=== PATIENT | male | born 1980 | race African-American/Black ===

== ENCOUNTER 2016-12-13 09:06 | Inpatient (IN) | payer OTHER, MEDICARE ==
[~2016-12-13] VITALS: Ht 208.3 cm; Wt 256.0 kg
[2016-12-13] VITALS (9 sets, daily range): BP systolic 134–182; BP diastolic 71–105; PULSE 78–101; RESP 19–22; TEMP 98–98.5; O2SAT 94–99
[~2016-12-13 09:06] MED LIST: AMLO5TAB22 PO; BACI500O9 TOP; CLEO300C2 PO; GABA600T PO; LANTINJ SC; LISI-366 PO; LORTA5 PO; METO25 PO; NOVOLOGP2 SQ; PRAV40TA2 PO; SAXA5TAB2 PO; TRAD5TAB PO
[2016-12-13] MEDS ORDERED: ASPIRIN 325 MG TAB PO ONE (09:45)
[2016-12-13] MEDS ORDERED: SODIUM CHLORIDE 0.9% FLUSH 10 ML FLUSH IVF PRN (09:45)
--- NOTE | 2016-12-13 09:45 | PD ---
HPI Chief Complaint: Cardiac Complaint Time Seen by Provider: 09:27 Travel History International Travel<30 days: No Contact w/Intl Traveler<30days: No Traveled to known affect area: No History of Present Illness HPI This patient complains of chest pain. Location is center sternum. Feels like a tightness and heaviness. It's been intermittent since yesterday. Duration one day. Severity is moderate. No alleviating factors. Not exacerbated by movement or activity. He has no history of cardiac disease. However he is a morbidly obese hypertensive diabetic. Denies ever having stress testing. PFSH Past Medical History Asthma: Yes Cancer: No Cardiovascular Problems: No Diabetes: Yes Patient Takes Glucophage: Yes (12-12-2016 PM) Endocrine: Yes Genitourinary: No Hepatitis: No Hiatal Hernia: No Hypertension: Yes Immune Disorder: No Musculoskeletal: Yes (back problems bulging disc) Neurologic: No Psychiatric: No Reproductive: No Respiratory: Yes (asthma sleep apnea) Immunizations Current: No Thyroid Disease: No Past Surgical History Abdominal Surgery: Yes (hemorroidectomy) AICD: No Joint Replacement: No Pacemaker: No Other Surgery: Yes (HEMORRHOIDECTOMY 2004) Family History Family Hypercholesterolemia: Yes Social History Alcohol Use: Yes (OCCASIONAL) Tobacco Use: No Substance Use: No Allergies-Medications (Allergen,Severity, Reaction): Coded Allergies: No Known Allergies (Verified , 12/13/16) Reported Meds & Prescriptions Reported Meds & Active Scripts Active Reported Xarelto (Rivaroxaban) 10 Mg Tab 10 Mg PO DAILY Norvasc (Amlodipine Besylate) 10 Mg Tab 10 Mg PO DAILY Lisinopril 40 Mg Tab 40 Mg PO DAILY Metoprolol Tartrate 25 Mg Tab 25 Mg PO BID Gabapentin 600 Mg Tab 600 Mg PO TID Lantus Inj (Insulin Glargine) 1,000 Unit/10 Ml Vial 80 Units SQ BID Novolog Inj (Insulin Aspart) 1,000 Unit/10 Ml Vial 50 Units SQ TID Metformin (Metformin HCl) 1,000 Mg Tab 1,000 Mg PO BIDPC Review of Systems General / Constitutional: No: Fever Eyes: No: Visual changes HENT: No: Headaches Cardiovascular: Positive: Chest Pain or Discomfort Respiratory: No: Shortness of Breath Gastrointestinal: No: Abdominal Pain Genitourinary: No: Dysuria Musculoskeletal: No: Pain Skin: No Rash Neurologic: No: Weakness Psychiatric: No: Depression Endocrine: No: Polydipsia Hematologic/Lymphatic: No: Easy Bruising Physical Exam Narrative GENERAL: Well-nourished, well-developed patient in no apparent distress. SKIN: Focused skin assessment reveals no rash and nodules. Skin is Warm and dry. HEAD: Atraumatic. Normocephalic. EYES: Pupils equal and round. No scleral icterus. No injection or drainage. ENT: No nasal bleeding or discharge. Mucous membranes pink and moist. NECK: Trachea midline. No JVD. CARDIOVASCULAR: Regular rate and rhythm. No murmur appreciated. RESPIRATORY: No accessory muscle use. Clear to auscultation. Breath sounds equal bilaterally. GASTROINTESTINAL: Abdomen soft, non-tender, nondistended. Hepatic and splenic margins not palpable. MUSCULOSKELETAL: No obvious deformities. No clubbing. No cyanosis. No edema. The tip of his left fourth toe appears necrotic. Has easily palpable bilateral pedal pulses. NEUROLOGICAL: Awake and alert. No obvious cranial nerve deficits. Motor grossly within normal limits. Normal speech. PSYCHIATRIC: Appropriate mood and affect; insight and judgment normal. Data Data Last Documented VS Vital Signs Date Time Temp Pulse Resp B/P (MAP) Pulse Ox O2 Delivery O2 Flow Rate FiO2 12/13/16 10:24 90 19 138/89 (105) 97 Room Air 12/13/16 09:08 98.5 Orders Orders Electrocardiogram (12/13/16 ) Electrocardiogram (12/13/16 09:36) Basic Metabolic Panel (Bmp) (12/13/16 09:36) Ckmb (Isoenzyme) Profile (12/13/16 09:36) Complete Blood Count With Diff (12/13/16 09:36) Prothrombin Time / Inr (Pt) (12/13/16 09:36) Act Partial Throm Time (Ptt) (12/13/16 09:36) Troponin I (12/13/16 09:36) Chest, Single Ap (12/13/16 09:36) Ecg Monitoring (12/13/16 09:36) Iv Access Insert/Monitor (12/13/16 09:36) Oximetry (12/13/16 09:36) Aspirin (Aspirin) (12/13/16 09:45) Sodium Chloride 0.9% Flush (Ns Flush) (12/13/16 09:45) Bedside Glucose FUNMI.CSUGAR (12/13/16 09:36) Resp Lab Draw Arterial Punctur (12/13/16 ) CKMB (12/13/16 09:40) CKMB% (12/13/16 09:40) Admit Order (Ed Use Only) (12/13/16 11:57) Labs Laboratory Tests Test 12/13/16 09:40 White Blood Count 6.7 TH/MM3 Red Blood Count 4.95 MIL/MM3 Hemoglobin 13.4 GM/DL Hematocrit 40.4 % Mean Corpuscular Volume 81.5 FL Mean Corpuscular Hemoglobin 27.0 PG Mean Corpuscular Hemoglobin Concent 33.1 % Red Cell Distribution Width 14.9 % Platelet Count 256 TH/MM3 Mean Platelet Volume 10.5 FL Neutrophils (%) (Auto) 38.5 % Lymphocytes (%) (Auto) 49.4 % Monocytes (%) (Auto) 6.6 % Eosinophils (%) (Auto) 4.4 % Basophils (%) (Auto) 1.1 % Neutrophils # (Auto) 2.6 TH/MM3 Lymphocytes # (Auto) 3.3 TH/MM3 Monocytes # (Auto) 0.4 TH/MM3 Eosinophils # (Auto) 0.3 TH/MM3 Basophils # (Auto) 0.1 TH/MM3 CBC Comment DIFF FINAL Differential Comment Prothrombin Time 10.8 SEC Prothromb Time International Ratio 1.0 RATIO Activated Partial Thromboplast Time 25.9 SEC Blood Urea Nitrogen 14 MG/DL Creatinine 0.83 MG/DL Random Glucose 255 MG/DL Calcium Level 9.5 MG/DL Sodium Level 135 MEQ/L Potassium Level 4.0 MEQ/L Chloride Level 101 MEQ/L Carbon Dioxide Level 25.7 MEQ/L Anion Gap 8 MEQ/L Estimat Glomerular Filtration Rate 127 ML/MIN Total Creatine Kinase 192 U/L Creatine Kinase MB 1.7 NG/ML Troponin I LESS THAN 0.02 NG/ML MDM Medical Decision Making Medical Screen Exam Complete: Yes Emergency Medical Condition: Yes Medical Record Reviewed: Yes Differential Diagnosis Differential diagnosis includes RI, angina, pericarditis, pleurisy, GERD, anxiety. Narrative Course I have reviewed the patient's electronic medical record. He has been here before for some minor complaints but no cardiac workup IV placed I reviewed the EKG which shows sinus rhythm but no ectopy or acute ST elevation I reviewed the chest x-ray which shows no consolidation, some atelectasis and hypoinflation Extended cardiac monitoring shows sinus rhythm without ectopy CBC is normal Metabolic profile shows hyperglycemia otherwise normal CK is normal Troponin is normal Coagulation studies are normal I gave him an aspirin Cardiac workup negative He will be a admission for chest pain he is a hypertensive obese diabetic. He also has question of an ischemic area on the tip of the left fourth toe suggesting possible microemboli He has a great pedal pulses there and not in A. fib I reviewed with hospitalist Diagnosis Primary Impression: Chest pain Qualified Codes: R07.9 - Chest pain, unspecified Additional Impression: Ischemia of toe Admitting Information Admitting Physician Requests: Admit Dennys Bazan MD Dec 13, 2016 09:45
--- NOTE | 2016-12-13 09:59 | RADRPT ---
EXAM DATE/TIME: 12/13/2016 09:51 [facility] COMPARISON: No previous studies available for comparison. INDICATIONS : Chest pain x 2 days. MEDICAL HISTORY : None. SURGICAL HISTORY : None. ENCOUNTER: Initial ACUITY: 1 day PAIN SCORE: 7/10 LOCATION: Bilateral chest FINDINGS: AP view of the chest demonstrates a normal-sized cardiac silhouette. Lungs are underinflated with mil d atelectasis at the lung bases. No effusion, consolidation, or pneumothorax is appreciated. The bone s and soft tissues demonstrate no acute finding. CONCLUSION: Underinflated examination with atelectasis at the lung bases. Otherwise, no acute finding is identifi ed. Pablo Shannon MD on December 13, 2016 at 9:57 Board Certified Radiologist. This report was verified electronically.
[2016-12-13] MEDS ORDERED: LANTUS2P SQ (10:24)
[2016-12-13] MEDS ORDERED: GABA600T PO (10:24)
[2016-12-13] MEDS ORDERED: AMLO10 PO (10:24)
[2016-12-13] MEDS ORDERED: METF1000 PO (10:24)
[2016-12-13] MEDS ORDERED: METO25TA3 PO (10:24)
[2016-12-13] MEDS ORDERED: XARE10TA PO (10:24)
[2016-12-13] MEDS ORDERED: NOVOLOGP2 SQ (10:24)
[2016-12-13] MEDS ORDERED: LISI40TA PO (10:24)
[2016-12-13 10:46] LABS: AUTOMATED NEUTROPHIL # 2.6 TH/MM3 (1.8-7.7); BASOPHIL # 0.1 TH/MM3 (0-0.2); BASOPHIL % 1.1 % (0.0-2.0); EOSINOPHIL # 0.3 TH/MM3 (0-0.4); EOSINOPHIL % 4.4 % (0.0-4.0); HEMATOCRIT 40.4 % (39.0-51.0); HEMO FLAGS DIFF FINAL; LYMPH % 49.4 % (9.0-44.0); LYMPHOCYTE # 3.3 TH/MM3 (1.0-4.8); MEAN CELL VOLUME 81.5 FL (80.0-100.0); MEAN CORPUSCULAR HGB CONC 33.1 % (32.0-36.0); MONO % 6.6 % (0.0-8.0); NEUT % 38.5 % (16.0-70.0); PLATELET COUNT 256 TH/MM3 (150-450); RED BLOOD COUNT 4.95 MIL/MM3 (4.50-5.90); RED CELL DISTRIBUTION WIDTH 14.9 % (11.6-17.2); WHITE BLOOD COUNT 6.7 TH/MM3 (4.0-11.0)
[2016-12-13 11:11] LABS: ANION GAP 8 MEQ/L (5-15); BICARBONATE 25.7 MEQ/L (21.0-32.0); BLOOD UREA NITROGEN 14 MG/DL (7-18); CHLORIDE 101 MEQ/L (98-107); GLOMERULAR FILTRATION RATE 127 ML/MIN (>89); SODIUM (NA) 135 MEQ/L (136-145)
[2016-12-13 11:15] LABS: APTT (PATIENT) 25.9 SEC (24.3-30.1); CREATINE KINASE 192 U/L (39-308); PROTHROMBIN TIME - PATIENT 10.8 SEC (9.8-11.6)
[2016-12-13 11:28] LABS: CKMB 1.7 NG/ML (0.5-3.6)
[2016-12-13] MEDS ORDERED: DEXTROSE 50% IN WATER 50 ML VIAL(D50) IV PUSH PRN (12:15)
[2016-12-13] MEDS ORDERED: GLUCAGON 1 MG/ML VIAL OTHER PRN (12:15)
[2016-12-13] MEDS ORDERED: oxyCODONE/ACETAMINOPHEN 5 MG/325 MG TAB PO ONE (12:15)
[2016-12-13] MEDS ORDERED: ACETAMINOPHEN/HYDROcodone 325 MG/5 MG TAB PO PRN ×2 (12:30→19:45)
[2016-12-13] MEDS ORDERED: ACETAMINOPHEN 325 MG TAB PO PRN (12:30)
--- NOTE | 2016-12-13 12:41 | HHI.HP ---
[facility] Service [place] [facility] Primary Care Physician Unknown Admission Diagnosis chest pain, ischemic L 4th toe Diagnoses: (1) Chest pain Diagnosis: Principal (2) Ischemia of toe Diagnosis: Principal Chief Complaint: chest pain Travel History International Travel<30 Days: No Contact w/Intl Traveler <30 Da: No Traveled to Known Affected Are: No History of Present Illness patient is a 36 y/o male, morbidly obese, with history of hypertension and diabetes, who presented to ER with chest pain. he says that the pain started yesterday and lasted on and off till today. pain is midsternal, sharp and intermittent. pain was associated with some sob. he denies any nausea, vomiting or diaphoresis. he says that he also noticed some black discoloration of the left fourth toe yesterday.he denies any pain. there's no report of fever. he's complaining of low back pain. he says that its' been going on for sometime. Review of Systems Constitutional: DENIES: Fever, Weight loss, Chills, Night Sweats Eyes: DENIES: Blurred vision, Diplopia, Vision loss, Double Vision Ears, nose, mouth, throat: DENIES: Tinnitus, Vertigo, Throat pain, Epistaxis Respiratory: COMPLAINS OF: Shortness of breath, DENIES: Apneas, Cough, Snoring , Wheezing, Hemoptysis, Sputum production Cardiovascular: COMPLAINS OF: Chest pain, DENIES: Palpitations, Syncope, Dyspnea on Exertion, PND, Lower Extremity Edema, Orthopnea, Claudication Gastrointestinal: DENIES: Abdominal pain, Black stools, Bloody stools, Constipation, Diarrhea, Nausea, Vomiting, Difficulty Swallowing, Anorexia Genitourinary: DENIES: Urinary frequency, Urgency, Hematuria, Dysuria Musculoskeletal: COMPLAINS OF: Back pain, DENIES: Joint pain, Muscle aches, Stiffness, Joint Swelling Integumentary: DENIES: Rash Neurologic: DENIES: Abnormal gait, Headache, Localized weakness, Paresthesias, Seizures, Speech Problems, Tremor, Poor Balance Psychiatric: DENIES: Anxiety, Confusion, Mood changes, Depression, Hallucinations, Agitation, Suicidal Ideation, Homicidal Ideation, Delusions Past Family Social History Past Medical History hypertension diabetes mellitus DVT Past Surgical History hemorrhoid surgery. Reported Medications insulin amlodipine metoprolol lisinopril xarelto Allergies: Coded Allergies: No Known Allergies (Verified , 12/13/16) Active Ordered Medications Current Medications Aspirin (Aspirin) 325 mg ONCE ONCE PO Last administered on 12/13/16t 09:54; Start 12/13/16 at 09:45; Stop 12/13/16 at 09:46; Status DC Sodium Chloride (NS Flush) 2 ml UNSCH PRN IVF FLUSH AFTER USING IV ACCESS; Start 12/13/16 at 09:45 Oxycodone/ Acetaminophen (Percocet 5-325 Mg) 2 tab ONCE ONCE PO ; Start 12/13 at 12:15; Stop 12/13/16 at 12:16; Status DC Family History CHF in his mother. Social History no smoking. drinks occasionally. Physical Exam Vital Signs Vital Signs Date Time Temp Pulse Resp B/P (MAP) Pulse Ox O2 Delivery O2 Flow Rate FiO2 12/13/16 10:24 90 19 138/89 (105) 97 Room Air 12/13/16 09:37 99 12/13/16 09:22 97 22 98 Room Air 12/13/16 09:17 101 22 153/90 (111) 96 12/13/16 09:08 98.5 94 22 182/105 (130) 94 Physical Exam GENERAL: This is a well-nourished, well-developed patient, in no apparent distress. SKIN: No rashes, ecchymoses or lesions. Cool and dry. HEAD: Atraumatic. Normocephalic. No temporal or scalp tenderness. EYES: Pupils equal round and reactive. Extraocular motions intact. No scleral icterus. No injection or drainage. ENT: Nose without bleeding, purulent drainage or septal hematoma. Throat without erythema, tonsillar hypertrophy or exudate. Uvula midline. Airway patent. NECK: Trachea midline. No JVD or lymphadenopathy. Supple, nontender, no meningeal signs. CARDIOVASCULAR: Regular rate and rhythm without murmurs, gallops, or rubs. RESPIRATORY: Clear to auscultation. Breath sounds equal bilaterally. No wheezes , rales, or rhonchi. GASTROINTESTINAL: Abdomen soft, non-tender, nondistended. No hepato-splenomegaly , or palpable masses. No guarding. MUSCULOSKELETAL: Extremities without clubbing, cyanosis, or edema. No joint tenderness, effusion, or edema noted. No calf tenderness. Negative Homans sign bilaterally. NEUROLOGICAL: Awake and alert. Cranial nerves II through XII intact. Motor and sensory grossly within normal limits. Five out of 5 muscle strength in all muscle groups. Normal speech. Laboratory Laboratory Tests Test 12/13/16 09:40 White Blood Count 6.7 Red Blood Count 4.95 Hemoglobin 13.4 Hematocrit 40.4 Mean Corpuscular Volume 81.5 Mean Corpuscular Hemoglobin 27.0 Mean Corpuscular Hemoglobin Concent 33.1 Red Cell Distribution Width 14.9 Platelet Count 256 Mean Platelet Volume 10.5 Neutrophils (%) (Auto) 38.5 Lymphocytes (%) (Auto) 49.4 Monocytes (%) (Auto) 6.6 Eosinophils (%) (Auto) 4.4 Basophils (%) (Auto) 1.1 Neutrophils # (Auto) 2.6 Lymphocytes # (Auto) 3.3 Monocytes # (Auto) 0.4 Eosinophils # (Auto) 0.3 Basophils # (Auto) 0.1 CBC Comment DIFF FINAL Differential Comment Prothrombin Time 10.8 Prothromb Time International Ratio 1.0 Activated Partial Thromboplast Time 25.9 Blood Urea Nitrogen 14 Creatinine 0.83 Random Glucose 255 Calcium Level 9.5 Sodium Level 135 Potassium Level 4.0 Chloride Level 101 Carbon Dioxide Level 25.7 Anion Gap 8 Estimat Glomerular Filtration Rate 127 Total Creatine Kinase 192 Creatine Kinase MB 1.7 Troponin I LESS THAN 0.02 Result Diagram: 12/13/1640 12/13/16939 Imaging Last Impressions Chest X-Ray 12/13/16935 Signed Impressions: Service Date/Time: Tuesday, December 13, 2016 09:51 - CONCLUSION: Underinflated examination with atelectasis at the lung bases. Otherwise, no acute finding is identified. MD Logan Del Toro VTE Risk Assessment Caprini VTE Risk Assessment: Mod/High Risk (score >= 2) Caprini Risk Assessment Model Point Value = 1 Point Value = 2 Point Value = 3 Point Value = 5 Age 41-60 Minor surgery BMI > 25 kg/m2 Swollen legs Varicose veins or History of unexplained or recurrent spontaneous Oral contraceptives or hormone replacement Sepsis (< 1 month) Serious lung disease, including pneumonia (< 1 month) Abnormal pulmonary function Acute myocardial infarction Congestive heart failure (< 1 month) History of inflammatory bowel disease Medical patient at bed rest Age 61-74 Arthroscopic surgery Major open surgery (> 45 min) Laparoscopic surgery (> 45 min) Malignancy Confined to bed (> 72 hours) Immobilizing plaster cast Central venous access Age >= 75 History of VTE Family history of VTE Factor V Leiden Prothrombin [id number] Lupus anticoagulant Anticardiolipin antibodies Elevated serum homocysteine Heparin-induced thrombocytopenia Other congenital or acquired thrombophilia Stroke (< 1 month) Elective arthroplasty Hip, pelvis, or leg fracture Acute spinal cord injury (< 1 month) Prophylaxis Regimen Total Risk Factor Score Risk Level Prophylaxis Regimen 0-1 Low Early ambulation 2 Moderate Order ONE of the following: *Sequential Compression Device (SCD) *Heparin 5000 units SQ BID 3-4 Higher Order ONE of the following medications: *Heparin 5000 units SQ TID *Enoxaparin/Lovenox 40 mg SQ daily (WT < 150 kg, CrCl > 30 mL/min) *Enoxaparin/Lovenox 30 mg SQ daily (WT < 150 kg, CrCl > 10-29 mL/min) *Enoxaparin/Lovenox 30 mg SQ BID (WT < 150 kg, CrCl > 30 mL/min) AND/OR *Sequential Compression Device (SCD) 5 or more Highest Order ONE of the following medications: *Heparin 5000 units SQ TID (Preferred with Epidurals) *Enoxaparin/Lovenox 40 mg SQ daily (WT < 150 kg, CrCl > 30 mL/min) *Enoxaparin/Lovenox 30 mg SQ daily (WT < 150 kg, CrCl > 10-29 mL/min) *Enoxaparin/Lovenox 30 mg SQ BID (WT < 150 kg, CrCl > 30 mL/min) AND *Sequential Compression Device (SCD) Assessment and Plan Assessment and Plan A/P - chest pain received a dose of aspirin in ER- will trend the cardiac enzymes. consult cardiology ( in light of being morbidly obese with other risk factors) continue BB and lisinopril. -left fourth toe gangrene- consult podiatry -hypertension; resume home meds; metoprolol, amlodipine and lisinopril- will monitor and adjust the regimen as needed. -diabetes mellitus; accu-check with SSI -history of recent DVT; resume Xarelto- will consider holding anticoagulation- pending the work-up. Discussed Condition With ER physician and the patient. Physician Certification 2 Midnight Certification Type: Admission for Inpatient Services Order for Inpatient Services The services are ordered in accordance with Medicare regulations or non- Medicare payer requirements, as applicable. In the case of services not specified as inpatient-only, they are appropriately provided as inpatient services in accordance with the 2-midnight benchmark. Estimated LOS (days): 2 days is the estimated time the patient will need to remain in the hospital, assuming treatment plan goals are met and no additional complications. Post-Hospital Plan: Home Physician Certification 2 Midnight Certification Type: Admission for Inpatient Services Order for Inpatient Services The services are ordered in accordance with Medicare regulations or non- Medicare payer requirements, as applicable. In the case of services not specified as inpatient-only, they are appropriately provided as inpatient services in accordance with the 2-midnight benchmark. Estimated LOS (days): 2 days is the estimated time the patient will need to remain in the hospital, assuming treatment plan goals are met and no additional complications. Post-Hospital Plan: Not yet determined Problem Qualifiers (1) Chest pain: Qualified Codes: R07.9 - Chest pain, unspecified Glenis Beal MD Dec 13, 2016 12:41
[2016-12-13] MEDS: INSULIN ASPART 1,000 UNITS/10 ML VIAL SQ SCH ×2 (13:00→17:42)
[2016-12-13] MEDS: INSULIN ASPART SUPPLEMENTAL SCALE SQ SCH ×2 (17:00→21:35)
[2016-12-13] MEDS: GABAPENTIN 300 MG CAP PO SCH (17:42)
--- NOTE | 2016-12-13 18:19 | MB ---
cc: BRETT SCOTT DATE OF CONSULTATION 12/13/16 1980 REASON FOR CONSULTATION Atypical chest pain. HISTORY OF PRESENT ILLNESS A 36-year-old male with past medical history significant for morbid obesity, hypertension, diabetes, DVT on chronic oral anticoagulation that presented to the emergency department with vague complaints of back pain, left flank pain and chest pain. He reports that yesterday he started having this mid sternal sharp chest pain that lasts one minute and goes away by itself, is not associated with exertion or shortness of breath, fatigue, palpitations or presyncope. Cardiology has been consulted for further management and evaluation. REVIEW OF SYSTEMS Negative except for what is mentioned in HPI. PAST MEDICAL HISTORY 1. Hypertension, 2. Diabetes mellitus 3. DVT. PAST SURGICAL HISTORY Hemorrhoid surgery MEDICATIONS Reported including 1. Insulin 2. Amlodipine 3. Metoprolol, 4. Lisinopril 5. Xarelto ALLERGIES NO KNOWN DRUG ALLERGIES. FAMILY HISTORY Mother had history of heart failure. SOCIAL HISTORY He denies tobacco abuse or alcohol abuse or illicit drug use. PHYSICAL EXAMINATION VITAL SIGNS: Temperature 98.5, respiratory rate 19, heart rate 74, blood pressure 136/71, O2 sat 97% on room air. GENERAL: Alert, awake, oriented x3 in no acute distress. NECK: No JVD, no carotid bruits. HEART: Regular rate and rhythm. No murmurs, rubs or gallops. LUNGS: Poor inspiratory effort, however, no wheezes, rhonchi or rales. ABDOMEN: Obese, soft, nontender, nondistended. Positive bowel sounds. EXTREMITIES: No cyanosis, mild edema in bilateral lower extremities. LABORATORY DATA CBC - hemoglobin 13, hematocrit 40, platelet count 256, INR one. Chemistries - sodium 135, potassium four, BUN 14, creatinine 0.83, troponin less than 0.02 x2. IMAGING STUDIES Chest x-ray - No acute cardiopulmonary process. CARDIOLOGY STUDIES EKG - normal sinus rhythm with no acute ST changes. ASSESSMENT/PLAN A 36-year-old male with cardiac risk factors that include hypertension, diabetes, obesity, admitted with atypical chest pain. He remains fairly hemodynamically stable and chest pain free. EKG and first two sets of cardiac markers are unremarkable for ischemia. Characteristics of the chest pain seem to be atypical, thus, no invasive cardiac strategy is recommended at this time. The patient should be on aggressive medical therapy for primary prevention of CAD with blood pressure control, weight control and diabetes control. He should get a 2-D echocardiogram while in the hospital, continue his home dosages of medications and follow up with cardiology upon discharge. Thank you for the opportunity to take part in the care of this patient. We will be available on a p.r.n. basis for any other questions or concerns. MD GAETANO Keys/SA /3:26 PM /6:02 PM
--- NOTE | 2016-12-13 19:22 | PD.CONS ---
History of Present Illness Service Podiatry Consult Requested By ED Reason for Consult L 4th toe dark discoloration Primary Care Physician Unknown Diagnoses: History of Present Illness Patient admitted for chest pain and found to have dark discoloration to distal L 4th toe. No pain secondary to neuropathy due to uncontrolled diabetes, states FBS usually between 200s-300s. Past Family Social History Allergies: Coded Allergies: No Known Allergies (Verified , 12/13/16) Past Medical History Diabetes with peripheral neuropathy Asthma Lumbar radiculopathy Sleep apnea Past Surgical History hemorrhoidectomy Active Ordered Medications Current Medications Medications (Trade) Dose Ordered Sig/Alysa Route Start Time Stop Time Status Last Admin (NS Flush) 2 ml UNSCH PRN IVF 12/13/16 09:45 (D50w (Vial) Inj) 50 ml UNSCH PRN IV PUSH 12/13/16 12:15 (Glucagon Inj) 1 mg UNSCH PRN OTHER 12/13/16 12:15 (NovoLOG SUPPLEMENTAL SCALE) 1 ACHS SLIDING SCALE SQ 12/13/16 17:00 12/13/16 17:00 (Norvasc) 10 mg DAILY PO 12/14/16 09:00 (Neurontin) 600 mg TID PO 12/13/16 14:00 12/13/16 17:42 (NovoLOG INJ) 50 units TID SQ 12/13/16 13:00 12/13/16 17:42 (Levemir Inj) 80 units BID SQ 12/13/16 21:00 (Lopressor) 25 mg BID PO 12/13/16 21:00 (Prinivil) 40 mg DAILY PO 12/14/16 09:00 ([place] 5-325 Mg) 1 tab Q6H PRN PO 12/13/16 12:30 12/13/16 17:43 (Tylenol) 650 mg Q4H PRN PO 12/13/16 12:30 (Xarelto) 10 mg DAILY PO 12/14/16 09:00 Family History hypercholesterolemia Social History Occasional alcohol. Denies smoking/drugs Physical Exam Vital Signs Vital Signs Date Time Temp Pulse Resp B/P (MAP) Pulse Ox O2 Delivery O2 Flow Rate FiO2 12/13/16 15:00 98.0 90 22 134/87 (103) 96 12/13/16 13:54 74 19 136/71 (92) 97 12/13/16 12:38 78 19 134/75 (94) 98 Room Air 12/13/16 10:24 90 19 138/89 (105) 97 Room Air 12/13/16 09:37 99 12/13/16 09:22 97 22 98 Room Air 12/13/16 09:17 101 22 153/90 (111) 96 12/13/16 09:08 98.5 94 22 182/105 (130) 94 Physical Exam Palpable pedal pulses. Sensation absent to light touch Distal L 4th toe with dark discoloration and sloughing skin, consistent with dried blood bulla, likely greater than 1 week old. No open lesion beneath after removal of surface skin No open lesion noted. No sign of infection. Viable tissue beneath Laboratory Laboratory Tests Test 12/13/16 09:40 12/13/16 13:54 White Blood Count 6.7 Red Blood Count 4.95 Hemoglobin 13.4 Hematocrit 40.4 Mean Corpuscular Volume 81.5 Mean Corpuscular Hemoglobin 27.0 Mean Corpuscular Hemoglobin Concent 33.1 Red Cell Distribution Width 14.9 Platelet Count 256 Mean Platelet Volume 10.5 Neutrophils (%) (Auto) 38.5 Lymphocytes (%) (Auto) 49.4 Monocytes (%) (Auto) 6.6 Eosinophils (%) (Auto) 4.4 Basophils (%) (Auto) 1.1 Neutrophils # (Auto) 2.6 Lymphocytes # (Auto) 3.3 Monocytes # (Auto) 0.4 Eosinophils # (Auto) 0.3 Basophils # (Auto) 0.1 CBC Comment DIFF FINAL Differential Comment Prothrombin Time 10.8 Prothromb Time International Ratio 1.0 Activated Partial Thromboplast Time 25.9 Blood Urea Nitrogen 14 Creatinine 0.83 Random Glucose 255 Calcium Level 9.5 Sodium Level 135 Potassium Level 4.0 Chloride Level 101 Carbon Dioxide Level 25.7 Anion Gap 8 Estimat Glomerular Filtration Rate 127 Total Creatine Kinase 192 Creatine Kinase MB 1.7 Troponin I LESS THAN 0.02 LESS THAN 0.02 Result Diagram: 12/13/1693912/13/16939 Imaging Last 72 hours Impressions Chest X-Ray 12/13/16935 Signed Impressions: Service Date/Time: Tuesday, December 13, 2016 09:51 - CONCLUSION: Underinflated examination with atelectasis at the lung bases. Otherwise, no acute finding is identified. Pablo Shannon MD No foot xray obtained. Not needed at this time due to clinical findings Assessment and Plan Assessment and Plan Contusion L 4th distal toe Discussed with patient he easily could have bumped his toe at some point recently and not known due to neuropathy Removed skin and dried blood and healthy new skin beneath and viable Do not suspect fracture due to normal range of motion without crepitus to digit No further treatment needed. Podiatry signing off Praful Miles DPM Dec 13, 2016 19:22
--- NOTE | 2016-12-13 21:15 | EKG ---
Date Performed: 12/13/2016 Time Performed: 09:20:33 PTAGE: 36 years EKG: Sinus rhythm MODERATE INTRAVENTRICULAR CONDUCTION DELAY MINIMAL VOLTAGE CRITERIA FOR LVH, CONSIDER NORMAL VARIANT BORDERLINE ECG NO PREVIOUS TRACING DOCTOR: Gabino Torres Interpretating Date/Time 12/13/2016 21:14:52
[2016-12-13] MEDS: METOPROLOL TARTRATE 25 MG TAB PO SCH (21:33)
[2016-12-13] MEDS: ACETAMINOPHEN/HYDROcodone 325 MG/5 MG TAB PO PRN (21:34)
[2016-12-13] MEDS: INSULIN DETEMIR 100 UNITS/ML VIAL SQ SCH (21:34)
[2016-12-14] VITALS: BP 124/88; PULSE 74; RESP 20; TEMP 97.4; O2SAT 95
[2016-12-14] MEDS: ACETAMINOPHEN/HYDROcodone 325 MG/5 MG TAB PO PRN ×3 (03:40→18:02)
[2016-12-14 04:00] VITALS: BP 133/87; PULSE 77; RESP 20; TEMP 97.3; O2SAT 97
[2016-12-14 08:00] VITALS: BP 154/97; PULSE 72; PULSE 77; RESP 20; TEMP 97.5; O2SAT 96
[2016-12-14] MEDS: INSULIN ASPART SUPPLEMENTAL SCALE SQ SCH ×3 (08:00→17:00)
[2016-12-14] MEDS: GABAPENTIN 300 MG CAP PO SCH ×3 (09:00→18:03)
[2016-12-14] MEDS: METOPROLOL TARTRATE 25 MG TAB PO SCH (09:00)
[2016-12-14] MEDS: INSULIN DETEMIR 100 UNITS/ML VIAL SQ SCH (09:00)
[2016-12-14] MEDS: INSULIN ASPART 1,000 UNITS/10 ML VIAL SQ SCH ×3 (09:00→18:00)
[2016-12-14] MEDS ORDERED: RIVAROXABAN 10 MG TAB PO SCH (09:00)
[2016-12-14] MEDS ORDERED: LISINOPRIL 20 MG TAB PO SCH (09:00)
--- NOTE | 2016-12-14 09:10 | HHI.DCPOC ---
Discharge Care Plan Diagnosis: (1) Chest pain (2) Ischemia of toe (3) Hypertension (4) Diabetes mellitus (5) History of DVT (deep vein thrombosis) Your Health Problems Are: Chest Pain ( ) Fluctuating Blood Sugars Goals to Promote Your Health * To prevent worsening of your condition and complications * To maintain your health at the optimal level Directions to Meet Your Goals Take your medications as prescribed Follow your dietary instruction Follow activity as directed Keep your appointments as scheduled Take your immunizations and boosters as scheduled If your symptoms worsen call your PCP, if no PCP go to Urgent Care Center or Emergency Room Smoking is Dangerous to Your Health. Avoid second hand smoke Call the 24-hour hour crisis hotline for domestic abuse at Aracelis Rodriguez Dec 14, 2016 09:10
[2016-12-14] MEDS ORDERED: HYDR-3535 PO (09:14)
[2016-12-14] MEDS ORDERED: METO50TA PO (09:15)
[2016-12-14] MEDS: metFORMIN HCL 500 MG TAB PO SCH ×2 (11:58→18:02)
[2016-12-14 12:00] VITALS: BP 132/87; PULSE 72; RESP 20; TEMP 97.6; O2SAT 98
--- NOTE | 2016-12-14 12:00 | HHI.PR ---
Subjective Remarks F/U CP, LBP and LLE pain and swelling. Patient doing okay. Denies chest pain. Counseled regarding narcotics Discussed with RN. Objective Vitals Vital Signs Date Time Temp Pulse Resp B/P (MAP) Pulse Ox O2 Delivery O2 Flow Rate FiO2 12/14/16 08:00 97.5 77 20 154/97 (116) 96 12/14/16 08:00 72 12/14/16 07:15 Room Air 12/14/16 04:00 97.3 77 20 133/87 (102) 97 12/14/16 00:00 97.4 74 20 124/88 (100) 95 12/13/16 20:16 98.0 88 20 145/95 (112) 94 12/13/16 20:00 84 12/13/16 20:00 Room Air 12/13/16 15:00 98.0 90 22 134/87 (103) 96 12/13/16 13:54 74 19 136/71 (92) 97 12/13/16 12:38 78 19 134/75 (94) 98 Room Air Result Diagram: 12/13/1640 12/13/16 0940 Imaging Last Impressions Chest X-Ray 12/13/16 0936 Signed Impressions: Service Date/Time: Tuesday, December 13, 2016 09:51 - CONCLUSION: Underinflated examination with atelectasis at the lung bases. Otherwise, no acute finding is identified. Pablo Shannon MD Objective Remarks GENERAL: This is a well-nourished, well-developed patient, in no apparent distress. SKIN: No rashes, ecchymoses or lesions. Cool and dry. HEAD: Atraumatic. Normocephalic. No temporal or scalp tenderness. EYES: Pupils equal round and reactive. Extraocular motions intact. No scleral icterus. No injection or drainage. ENT: Nose without bleeding, purulent drainage or septal hematoma. Throat without erythema, tonsillar hypertrophy or exudate. Uvula midline. Airway patent. NECK: Trachea midline. No JVD or lymphadenopathy. Supple, nontender, no meningeal signs. CARDIOVASCULAR: Regular rate and rhythm without murmurs, gallops, or rubs. RESPIRATORY: Clear to auscultation. Breath sounds equal bilaterally. No wheezes , rales, or rhonchi. GASTROINTESTINAL: Abdomen soft, non-tender, nondistended. No guarding. MUSCULOSKELETAL: Extremities without clubbing, cyanosis but with BLE pitting edema. No joint tenderness, effusion, or edema noted. No calf tenderness. Negative Homans sign bilaterally. Sl tender left paraspinal NEUROLOGICAL: Awake and alert. Cranial nerves II through XII intact. Motor and sensory grossly within normal limits. Five out of 5 muscle strength in all muscle groups. Normal speech. Procedures none A/P Problem List: (1) Chest pain ICD Code: R07.9 - Chest pain, unspecified Status: Acute Assessment and Plan Atypical chest pain. Patient ruled out for CA. Cardiology recommended medical management with risk factor modifications. Follow-up pending echocardiogram, lipid profile and A1c. He understands he needs to lose weight continue BB and lisinopril. left fourth toe contusion status post podiatry evaluation hypertension; resume home meds; metoprolol, amlodipine and lisinopril- will monitor and adjust the regimen as needed. Increase Lopressor for better control diabetes mellitus; accu-check with SSI. Restart metformin, Lantus history of recent DVT 6 months ago; resume Xarelto- repeat Doppler as patient complained of increased pain and swelling. Patient has been compliant Lower back pain likely musculoskeletal. Obtain ESR Discharge Planning Discharge patient to home Condition on discharge: Improved Regular Diet as tolerated Ad Stefanie activity no driving Rx written: Lortab and Lopressor Follow-up with primary care physician and cardiology Problem Qualifiers (1) Chest pain: Qualified Codes: R07.9 - Chest pain, unspecified Dmitry Stephen MD Dec 14, 2016 12:00
[2016-12-14 12:41] LABS: HDL CHOLESTEROL 43.1 MG/DL (40.0-60.0)
[2016-12-14 16:00] VITALS: BP 132/83; PULSE 81; RESP 20; TEMP 97.8; O2SAT 97
--- NOTE | 2016-12-14 16:03 | ECHRPT ---
Indication: CHEST PAIN CONCLUSIONS Normal left ventricular size. Mild concentric left ventricular hypertrophy. The left ventricular systolic function is mildly reduced with an estimated ejection fraction in the range of 45- 50%. The right ventricular systoilc function is mildly decreased. Mild aortic dilatation at the level of the sinuses of Valsalva. Technically difficult due to morbid obesity with many views off axis and endocardium not well visual ized. Overall impression is a grossly normal to mildly reduced LVEF. BP: / HR: Rhythm: MEASUREMENTS (Male / Female) Normal Values Technical Quality:Technically difficult study 2D ECHO LV Diastolic Diameter PLAX 5.2 cm 4.2 - 5.9 / 3.9 - 5.3 cm LV Systolic Diameter PLAX 4.2 cm IVS Diastolic Thickness 1.7 cm 0.6 - 1.0 / 0.6 - 0.9 cm LVPW Diastolic Thickness 1.1 cm 0.6 - 1.0 / 0.6 - 0.9 cm LV Relative Wall Thickness 0.5 RV Internal Dim ED PLAX 3.1 cm DOPPLER Mitral E Point Velocity 60.7 cm/s Mitral A Point Velocity 37.4 cm/s Mitral E to A Ratio 1.6 TR Peak Velocity 164.0 cm/s TR Peak Gradient 10.8 mmHg FINDINGS LEFT VENTRICLE Normal left ventricular size. Mild concentric left ventricular hypertrophy. The left ventricular systolic function is mildly reduced with an estimated ejection fraction in the range of 45- 50%. RIGHT VENTRICLE The right ventricular systoilc function is mildly decreased. LEFT ATRIUM The left atrial size is normal. RIGHT ATRIUM The right atrial size is normal. ATRIAL SEPTUM Normal atrial septal thickness without atrial level shunting by limited color doppler interrogation. AORTA Mild aortic dilatation at the level of the sinuses of Valsalva. MITRAL VALVE Structurally normal mitral valve. No mitral valve stenosis or regurgitation. AORTIC VALVE Trileaflet aortic valve. No aortic valve stenosis or regurgitation. TRICUSPID VALVE Structurally normal tricuspid valve. No tricuspid valve stenosis or regurgitation. PULMONARY VALVE The pulmonary valve is not well visualized. VESSELS The inferior vena cava is normal in size. PERICARDIUM No pericardial effusion. Fermín Singer MD (Electronically Signed) Final Date:14 December 2016 16:02
--- NOTE | 2016-12-14 16:18 | RADRPT ---
EXAM DATE/TIME: 12/14/2016 15:32 [facility] COMPARISON: No previous studies available for comparison. INDICATIONS : Left leg swelling. MEDICAL HISTORY : Hypertension. Cardiac disorders. Asthma. Sleep apnea. Dyspnea. Diabetes. Claustrophobia. SURGICAL HISTORY : Hemorroidectomy. ENCOUNTER: Initial ACUITY: 4 - 6 months PAIN SCORE: 6/10 LOCATION: Left leg. TECHNIQUE: Venous ultrasound of the leg was performed from the inguinal ligament to the proximal calf. Real-patsy e, color Doppler and spectral tracing, compression and augmentation techniques were used. FINDINGS: There is normal compressibility of the deep venous system from the inguinal region to the proximal ca lf. There is limitation to compression of the distal superficial femoral vein felt to relate to the p atient's body habitus. No echogenic clot is seen in the lumen of the common femoral, femoral, poplite al, and posterior tibial veins. There is a normal response of the venous system to proximal and dist al augmentation and respiration. CONCLUSION: Normal examination. Javy Samuel Jr., MD on December 14, 2016 at 16:13 Board Certified Radiologist. This report was verified electronically.
[2016-12-14] MEDS ORDERED: METOPROLOL TARTRATE 25 MG TAB PO SCH (21:00)
[2016-12-15 13:40] LABS: HEMOGLOBIN A1a 0.8 %; HEMOGLOBIN A1b 0.8 %; HEMOGLOBIN Ao 52.1 %; HEMOGLOBIN F 1.1 %; HEMOGLOBIN P3 3.2 %
== END 2016-12-14 19:15 | disposition home or self-care (01) | DRG 313 ==
LOC: NEPE 09:06 → NEDA 11:59 → N04A 14:08
PROVIDERS: ADMIT Internal Medicine; ATTEND Internal Medicine
DX: R07.9 Chest pain, unspecified (principal); E11.52 Type 2 diabetes mellitus with diabetic peripheral angiopathy with gangrene; E11.42 Type 2 diabetes mellitus with diabetic polyneuropathy; Z68.43 Body mass index [BMI] 50.0-59.9, adult; J98.11 Atelectasis; I10 Essential (primary) hypertension; E66.01 Morbid (severe) obesity due to excess calories; Z86.718 Personal history of other venous thrombosis and embolism; E11.65 Type 2 diabetes mellitus with hyperglycemia; G47.30 Sleep apnea, unspecified; J45.909 Unspecified asthma, uncomplicated; Z79.01 Long term (current) use of anticoagulants
CPT/HCPCS: 36600; 71010; 80048; 80061; 82550; 82552; 82948; 83036; 84484; 85025; 85610; 85652; 85730; 93005; 93306; 93971; J1815

== ENCOUNTER 2017-04-11 13:36 | Emergency (ER) | payer OTHER, MEDICAID ==
[~2017-04-11] VITALS: Ht 208.3 cm; Wt 265.0 kg
[~2017-04-11 13:36] MED LIST changes: +AMLO10 PO; -AMLO5TAB22 PO; -BACI500O9 TOP; -CLEO300C2 PO; +HYDR-3535 PO; -LANTINJ SC; +LANTUS2P SQ; -LISI-366 PO; +LISI40TA PO; -LORTA5 PO; +METF1000 PO; -METO25 PO; +METO50TA PO; -PRAV40TA2 PO; -SAXA5TAB2 PO; -TRAD5TAB PO; +XARE10TA PO
[2017-04-11 13:38] VITALS: BP 170/100; PULSE 110; RESP 16; TEMP 98.2; O2SAT 98
[2017-04-11 13:48] VITALS: BP 120/75; PULSE 107; RESP 21; TEMP 98.2; O2SAT 96
[2017-04-11] MEDS ORDERED: WHIT15OI RIGHT EYE (14:24)
[2017-04-11] MEDS ORDERED: ARTIDRO RIGHT EYE (14:24)
[2017-04-11] MEDS ORDERED: PRED-503 PO (14:24)
[2017-04-11] MEDS ORDERED: VALT1TAB PO (14:24)
--- NOTE | 2017-04-11 14:24 | PD ---
HPI Chief Complaint: Neuro Symptoms/ Deficits Time Seen by Provider: 13:56 Travel History International Travel<30 days: No Contact w/Intl Traveler<30days: No Traveled to known affect area: No History of Present Illness HPI Is a 36-year-old male presents emerged from right-sided facial droop he noticed yesterday. He had funny discomfort in his face and then noticed in the mirror and noticed there is asymmetry. He also can hold his lids closed while he tries to blow out. He has not had any trouble with previous similar symptoms. He does have hypertension diabetes DVT and a history of obesity. He otherwise has been feeling generally well and healthy. No symptoms in his arms or legs. No other complaints. History Past Medical History Narrative Medical Hypertension Diabetes DVT Obesity Social History Alcohol Use: Yes (OCCASIONAL) Tobacco Use: No Allergies-Medications (Allergen,Severity, Reaction): Coded Allergies: No Known Allergies (Verified Adverse Reaction, Unknown, 04/11/17) Reported Meds & Prescriptions Reported Meds & Active Scripts Active Metoprolol Tartrate 50 Mg Tab 50 Mg PO BID 30 Days Reported Xarelto (Rivaroxaban) 10 Mg Tab 10 Mg PO DAILY Norvasc (Amlodipine Besylate) 10 Mg Tab 10 Mg PO DAILY Lisinopril 40 Mg Tab 40 Mg PO DAILY Gabapentin 600 Mg Tab 600 Mg PO TID Lantus Inj (Insulin Glargine) 1,000 Unit/10 Ml Vial 80 Units SQ BID Novolog Inj (Insulin Aspart) 1,000 Unit/10 Ml Vial 50 Units SQ TID Metformin (Metformin HCl) 1,000 Mg Tab 1,000 Mg PO BIDPC Review of Systems Except as stated in HPI: all other systems reviewed are Neg Physical Exam Narrative GENERAL: Well-appearing 36-year-old man, obese, no acute distress. SKIN: Focused skin assessment warm/dry. No rash. HEAD: Atraumatic. Normocephalic. EYES: Pupils equal and round. No scleral icterus. No injection or drainage. ENT: No nasal bleeding or discharge. Mucous membranes pink and moist. Marked facial asymmetry with right-sided facial droop, and complete facial paresis. Examination of the ears reveals no vesicular lesions. NECK: Trachea midline. No JVD. CARDIOVASCULAR: Regular rate and rhythm. No murmur appreciated. RESPIRATORY: No accessory muscle use. Clear to auscultation. Breath sounds equal bilaterally. GASTROINTESTINAL: Abdomen soft, non-tender, nondistended. Hepatic and splenic margins not palpable. MUSCULOSKELETAL: No obvious deformities. No clubbing. No cyanosis. No edema. NEUROLOGICAL: Awake and alert. Cranial nerve exam demonstrates right-sided facial paresis upper and lower. Sensations intact to light touch and equal throughout. EOMs are full and equal. Cranial nerves are otherwise intact. Strength full and equal in the upper or 70s. Normal finger to nose. Normal sensation. PSYCHIATRIC: Appropriate mood and affect; insight and judgment normal. Data Data Last Documented VS Vital Signs Date Time Temp Pulse Resp B/P (MAP) Pulse Ox O2 Delivery O2 Flow Rate FiO2 04/11/17 13:48 98.2 107 21 120/75 (90) 96 Room Air [facility] Medical Decision Making Medical Screen Exam Complete: Yes Emergency Medical Condition: Yes Differential Diagnosis Facial nerve paresis, Moise's palsy, stroke, other Narrative Course Medical decision making. Is a 36 year when he presents emerged department presents with right-sided facial paresis. Facial paresis is near complete. Upper and lower. No other neurologic findings. No evidence of zoster. This is Moise's palsy. Treatment is complicated by patient's diabetes. Had extensive discussion of the risks and benefits of treatment with steroids. Decision was made to proceed with steroid treatment however we will do it in 3 divided doses, he will monitor his blood sugar 3 times a day, adjust insulin dosing as necessary, and stop steroids if blood sugars remain above 300. He also agrees to return for any new or worsening symptoms. Diagnosis Primary Impression: Moise's palsy Additional Instructions: Take Valtrex as prescribed. Take prednisone as prescribed 3 times daily, monitor blood sugars 3 times daily along with this, increase your Lantus dose from 80-100 units with each dose while taking the prednisone. Stop the prednisone her blood sugars remain above 300. Follow-up with her primary doctor this week. Return to the emergency department for any new or worsening symptoms. Med/Other Pt SpecificInfo: Prescription(s) given Scripts Propylene Glycol-Glycerin Opth Drops (Artificial Tears Opth Drops) 1-0.3% Drops 1-2 DROP RIGHT EYE PRN Y for DRY EYE, #15 ML 0 Refills Prov: Bennett Ramirez MD 04/11/17 White Petrolatum-Mineral Oil Opth Oint 83-15% (Artificial Tears Opth Oint) 83-15 % Oint 1 APPLIC RIGHT EYE HS for Dry Eye, #3.5 GM 0 Refills Pull down lower eyelid & apply 1/4 inch to inside of eyelid. Prov: Bennett Ramirez MD 04/11/17 Prednisone (Deltasone) 20 Mg Tab 20 MG PO TID for 7 Days, #90 TAB 0 Refills Prov: Bennett Ramirez MD 04/11/17 Valacyclovir (Valtrex) 1,000 Mg Tab 1000 MG PO TID for Mgmt Viral Infection for 7 Days, #90 TAB 0 Refills Prov: Bennett Ramirez MD 04/11/17 Disposition: 01 DISCHARGE HOME Condition: Stable Bennett Ramirez MD Apr 11, 2017 14:24
--- NOTE | 2017-04-14 23:16 | EKG ---
Date Performed: 04/11/2017 Time Performed: 14:04:50 PTAGE: 36 years EKG: SINUS TACHYCARDIA MODERATE INTRAVENTRICULAR CONDUCTION DELAY MINIMAL VOLTAGE CRITERIA FOR L VH, CONSIDER NORMAL VARIANT NONSPECIFIC T-WAVE ABNORMALITY ABNORMAL RHYTHM ECG NO PREVIOUS TRACING DOCTOR: Dorinda Chou Interpretating Date/Time 04/14/2017 23:07:10
== END 2017-04-11 14:47 | disposition home or self-care (01) ==
LOC: NEPD 13:36
DX: G51.0 Bell's palsy (principal); R94.31 Abnormal electrocardiogram [ECG] [EKG]; I10 Essential (primary) hypertension; E11.9 Type 2 diabetes mellitus without complications; E66.9 Obesity, unspecified; Z79.4 Long term (current) use of insulin; Z79.84 Long term (current) use of oral hypoglycemic drugs; Z86.718 Personal history of other venous thrombosis and embolism; Z79.01 Long term (current) use of anticoagulants
CPT/HCPCS: 93005; 99283

== ENCOUNTER 2017-06-05 19:44 | Emergency (ER) | payer OTHER, MEDICAID ==
[~2017-06-05 19:44] MED LIST changes: +ARTIDRO RIGHT EYE; -HYDR-3535 PO; +PRED-503 PO; +VALT1TAB PO; +WHIT15OI RIGHT EYE
[2017-06-05 20:18] VITALS: BP 141/89; PULSE 119; RESP 18; TEMP 98.6; O2SAT 98
[2017-06-05] MEDS ORDERED: CLINDAMYCIN INJ 900 MG in SODIUM CHLORIDE 0.9% INJ 100 ML IV ONE (22:15)
--- NOTE | 2017-06-05 22:50 | RADRPT ---
EXAM DATE/TIME: 06/05/2017 22:34 [facility] COMPARISON: No previous studies available for comparison. INDICATIONS : Pain, swelling left foot. Denies injury MEDICAL HISTORY : Hypertension. Cardiac disorders. Asthma. Sleep apnea. Dyspnea. Diabetes, Claustrophobia. SURGICAL HISTORY : Hemorroidectomy. ENCOUNTER: Initial ACUITY: 2 weeks PAIN SCORE: 8/10 LOCATION: Left Foot FINDINGS: Limited AP and lateral views of the left foot were obtained in standard 3 view exam. Extensive soft t issue swelling is noted along the first digit and dorsum of the foot with no radiopaque foreign body. There is no destructive change or periosteal new bone formation. Minimal degenerative changes noted. CONCLUSION: Extensive soft tissue swelling with no radiopaque foreign body or underlying bony abn ormality. Madi Patel MD on June 05, 2017 at 22:46 Board Certified Radiologist. This report was verified electronically.
[2017-06-05 23:27] VITALS: BP 133/94; PULSE 108; RESP 18; O2SAT 97
[2017-06-05] MEDS ORDERED: ACETAMINOPHEN/HYDROcodone 325 MG/5 MG TAB PO ONE (23:45)
[2017-06-05 23:47] LABS: AUTOMATED NEUTROPHIL # 3.5 TH/MM3 (1.8-7.7); BASOPHIL % 0.2 % (0.0-2.0); EOSINOPHIL # 0.2 TH/MM3 (0-0.4); EOSINOPHIL % 2.4 % (0.0-4.0); HEMATOCRIT 41.7 % (39.0-51.0); HEMOGLOBIN 13.8 GM/DL (13.0-17.0); LYMPH % 46.3 % (9.0-44.0); LYMPHOCYTE # 3.9 TH/MM3 (1.0-4.8); MEAN CELL VOLUME 82.7 FL (80.0-100.0); MEAN CORPUSCULAR HEMOGLOBIN 27.4 PG (27.0-34.0); MEAN CORPUSCULAR HGB CONC 33.2 % (32.0-36.0); MEAN PLATELET VOLUME 9.9 FL (7.0-11.0); MONO % 8.9 % (0.0-8.0); MONOCYTE # 0.7 TH/MM3 (0-0.9); NEUT % 42.2 % (16.0-70.0); PLATELET COUNT 206 TH/MM3 (150-450); RED BLOOD COUNT 5.04 MIL/MM3 (4.50-5.90); RED CELL DISTRIBUTION WIDTH 16.2 % (11.6-17.2); WHITE BLOOD COUNT 8.4 TH/MM3 (4.0-11.0)
--- NOTE | 2017-06-05 23:52 | RADRPT ---
EXAM DATE/TIME: 06/05/2017 22:48 [facility] COMPARISON: No previous studies available for comparison. INDICATIONS : Left leg swelling. MEDICAL HISTORY : Hypertension. Methicillin-resistant Staphylococcus aureus. Sleep apnea. Diabetes. Neuropathy. SURGICAL HISTORY : Hemorrhoidectomy. Wound debridement. ENCOUNTER: Subsequent ACUITY: 2 weeks PAIN SCORE: 3/10 LOCATION: Left leg. TECHNIQUE: Venous ultrasound of the leg was performed from the inguinal ligament to the proximal calf. Real-patsy e, color Doppler and spectral tracing, compression and augmentation techniques were used. FINDINGS: There is normal compressibility of the deep venous system from the inguinal region to the proximal ca lf. No echogenic clot is seen in the lumen of the common femoral, femoral, popliteal, and posterior tibial veins. There is a normal response of the venous system to proximal and distal augmentation an d respiration. Prominent left inguinal lymph nodes. CONCLUSION: No evidence of left leg DVT Pablo Smith MD on June 05, 2017 at 23:48 Board Certified Radiologist. This report was verified electronically.
--- NOTE | 2017-06-05 23:58 | PD ---
HPI Chief Complaint: Edema Time Seen by Provider: 22:05 Travel History International Travel<30 days: No Contact w/Intl Traveler<30days: No Traveled to known affect area: No History of Present Illness HPI 36-year-old male arrives with a wound of the left great toe. He has a history of diabetes insulin-dependent and reports increasing pain on the left leg. He noticed a wound on the plantar surface of the left great toe. He is a history of diabetic neuropathy and evidently reports not checking his feet as often as he should. He has had no fever. PFSH Past Medical History Asthma: Yes Heart Rhythm Problems: No Cancer: No Cardiovascular Problems: Yes High Cholesterol: No Chest Pain: Yes Congestive Heart Failure: No Diabetes: Yes Patient Takes Glucophage: Yes Endocrine: Yes Gastrointestinal Disorders: No Genitourinary: No Hepatitis: No Hiatal Hernia: No Hypertension: Yes Immune Disorder: No Musculoskeletal: Yes (back problems bulging disc) Neurologic: No Psychiatric: No Reproductive: No Respiratory: Yes (asthma sleep apnea) Immunizations Current: No Sleep Apnea: Yes Thyroid Disease: No Past Surgical History Abdominal Surgery: Yes (hemorroidectomy) AICD: No Joint Replacement: No Pacemaker: No Other Surgery: Yes (HEMORRHOIDECTOMY 2004) Family History Family Hypercholesterolemia: Yes Social History Alcohol Use: Yes (OCCASIONAL) Tobacco Use: No Substance Use: No Allergies-Medications (Allergen,Severity, Reaction): Coded Allergies: No Known Allergies (Verified Adverse Reaction, Unknown, 04/11/17) Reported Meds & Prescriptions Reported Meds & Active Scripts Active Artificial Tears Opth Drops (Propylene Glycol-Glycerin Opth Drops) 1-0.3% Drops 1-2 Drop RIGHT EYE PRN PRN Metoprolol Tartrate 50 Mg Tab 50 Mg PO BID 30 Days Reported Xarelto (Rivaroxaban) 10 Mg Tab 10 Mg PO DAILY Norvasc (Amlodipine Besylate) 10 Mg Tab 10 Mg PO DAILY Lisinopril 40 Mg Tab 40 Mg PO DAILY Gabapentin 600 Mg Tab 600 Mg PO TID Lantus Inj (Insulin Glargine) 1,000 Unit/10 Ml Vial 80 Units SQ BID Novolog Inj (Insulin Aspart) 1,000 Unit/10 Ml Vial 50 Units SQ TID Metformin (Metformin HCl) 1,000 Mg Tab 1,000 Mg PO BIDPC Review of Systems Except as stated in HPI: all other systems reviewed are Neg General / Constitutional: No: Fever, Chills Eyes: No: Photophobia Physical Exam Narrative GENERAL: 36-year-old male no acute distress Vital Signs Date Time Temp Pulse Resp B/P (MAP) Pulse Ox O2 Delivery O2 Flow Rate FiO2 06/05/17 23:27 108 18 133/94 (107) 97 Room Air 06/05/17 20:18 98.6 119 18 141/89 (106) 98 SKIN: Warm and dry. HEAD: Atraumatic. Normocephalic. EYES: Pupils equal and round. No scleral icterus. No injection or drainage. ENT: No nasal bleeding or discharge. Mucous membranes pink and moist. NECK: Trachea midline. No JVD. CARDIOVASCULAR: Regular rate and rhythm. RESPIRATORY: No accessory muscle use. Clear to auscultation. Breath sounds equal bilaterally. GASTROINTESTINAL: Abdomen soft, non-tender, nondistended. Hepatic and splenic margins not palpable. MUSCULOSKELETAL: There is an approximate 3 cm wound overlying the plantar aspect of the left toe NEUROLOGICAL: Awake and alert. No obvious cranial nerve deficits. Motor grossly within normal limits. Five out of 5 muscle strength in the arms and legs. Normal speech. PSYCHIATRIC: Appropriate mood and affect; insight and judgment normal. Data Data Last Documented VS Vital Signs Date Time Temp Pulse Resp B/P (MAP) Pulse Ox O2 Delivery O2 Flow Rate FiO2 06/06/17 00:26 18 06/05/17 23:27 108 133/94 (107) 97 Room Air 06/05/17 20:18 98.6 Orders Orders Basic Metabolic Panel (Bmp) (06/05/17 22:12) Complete Blood Count With Diff (06/05/17 22:12) Wound Culture And Gram Stain (06/05/17 22:12) Iv Access Insert/Monitor (06/05/17 22:12) Wound Care (06/05/17 22:12) Clindamycin Inj (Cleocin Inj) (06/05/17 22:15) Foot, Limited (2vws) (06/05/17 ) Us Leg Venous Doppler (06/05/17 ) Acetamin-Hydrocod 325-5 Mg ([place] 5-325 (06/05/17 23:45) Labs Laboratory Tests Test 06/05/17 23:26 White Blood Count 8.4 TH/MM3 Red Blood Count 5.04 MIL/MM3 Hemoglobin 13.8 GM/DL Hematocrit 41.7 % Mean Corpuscular Volume 82.7 FL Mean Corpuscular Hemoglobin 27.4 PG Mean Corpuscular Hemoglobin Concent 33.2 % Red Cell Distribution Width 16.2 % Platelet Count 206 TH/MM3 Mean Platelet Volume 9.9 FL Neutrophils (%) (Auto) 42.2 % Lymphocytes (%) (Auto) 46.3 % Monocytes (%) (Auto) 8.9 % Eosinophils (%) (Auto) 2.4 % Basophils (%) (Auto) 0.2 % Neutrophils # (Auto) 3.5 TH/MM3 Lymphocytes # (Auto) 3.9 TH/MM3 Monocytes # (Auto) 0.7 TH/MM3 Eosinophils # (Auto) 0.2 TH/MM3 Basophils # (Auto) 0.0 TH/MM3 CBC Comment DIFF FINAL Differential Comment Blood Urea Nitrogen 9 MG/DL Creatinine 0.92 MG/DL Random Glucose 314 MG/DL Calcium Level 9.1 MG/DL Sodium Level 137 MEQ/L Potassium Level 4.4 MEQ/L Chloride Level 101 MEQ/L Carbon Dioxide Level 28.4 MEQ/L Anion Gap 8 MEQ/L Estimat Glomerular Filtration Rate 113 ML/MIN MDM Medical Decision Making Medical Screen Exam Complete: Yes Emergency Medical Condition: Yes Differential Diagnosis Cellulitis, DVT, osteomyelitis Narrative Course CBC & BMP Diagram 06/05/17 23:26 Calcium Level 9.1 Last Impressions Lower Extremity Ultrasound 06/05/17 0000 Signed Impressions: Service Date/Time: May 22:48 - CONCLUSION: No evidence of left leg DVT Pablo Smith MD Foot X-Ray 06/05/17 0000 Signed Impressions: Service Date/Time: May 22:34 - CONCLUSION: Extensive soft tissue swelling with no radiopaque foreign body or underlying bony abnormality. Madi Patel MD The patient is resting comfortably and feels better, is alert and in no distress. The patients results and examination findings were discussed. The repeat examination is unremarkable and benign. The history, exam, diagnostic testing, and current condition do not suggest any significant pathology to warrant further testing, continued ED treatment, admission, or surgical evaluation at this point. The vital signs have been stable. The patient does not have uncontrollable pain, intractable vomiting, or other significant symptoms. The patient's condition is stable and appropriate for discharge. The patient will pursue further outpatient evaluation with a primary care physician or other designated or consulting physician as indicated in the discharge instructions. The patient expressed understanding and was agreeable with this plan. Diagnosis Primary Impression: Diabetes mellitus Additional Impressions: History of DVT (deep vein thrombosis) Cellulitis Qualified Codes: L03.032 - Cellulitis of left toe Referrals: Aracelis Hutchins DPM call for appointment Med/Other Pt SpecificInfo: Prescription(s) given Scripts Clindamycin (Clindamycin) 150 Mg Cap 450 MG PO Q8HR for Infection for 14 Days, CAP 0 Refills Prov: Saw Meadows MD 06/06/17 Disposition: 01 DISCHARGE HOME Condition: Stable Saw Meadows MD Jun 05, 2017 23:58
[2017-06-06 00:13] LABS: BICARBONATE 28.4 MEQ/L (21.0-32.0); CALCIUM 9.1 MG/DL (8.5-10.1); CREATININE 0.92 MG/DL (0.60-1.30)
[2017-06-06 00:26] VITALS: RESP 18
[2017-06-06] MEDS ORDERED: CLIN150C14 PO (00:32)
== END 2017-06-06 01:14 | disposition home or self-care (01) ==
LOC: NEPE 19:44
DX: E11.40 Type 2 diabetes mellitus with diabetic neuropathy, unspecified (principal); L03.032 Cellulitis of left toe; M79.89 Other specified soft tissue disorders; I10 Essential (primary) hypertension; Z79.4 Long term (current) use of insulin; Z86.718 Personal history of other venous thrombosis and embolism
CPT/HCPCS: 73620; 80048; 85025; 86403; 87070; 87077; 87186; 87205; 93971; 96365